=== PATIENT | female | born 1995 | race Caucasian/White ===

== ENCOUNTER → 2023-01-21 10:24 | Outpatient (CLI) | payer OTHER, SELFPAY ==
--- NOTE | 2023-01-21 | DI.MRI.S_ITS ---
PROCEDURE: MR ANKLE LT WO CON INDICATIONS: Pain in left ankle and joints of left foot TECHNIQUE: Noncontrast sagittal T1 spin echo and T2 fast spin echo with fat saturation, axial proton density fast spin echo and T2 fast spin echo with fat saturation, coronal T1 spin echo and T2 fast spin echo with fat saturation through the ankle/hindfoot. COMPARISON: None. FINDINGS: Image quality: Excellent. Bones and joints: No bone marrow contusions or fractures. No hindfoot coalitions. No osteochondral injuries of the talar dome. No pathologic joint effusions. Medial structures: The posterior tibialis, flexor digitorum longus, and flexor hallucis longus tendons are intact. Moderate fluid surrounds the flexor hallucis longus tendon. Small amounts of fluid surround the flexor digitorum longus and tibialis posterior tendons. The posterior tibial neurovascular bundle appears normal within the tarsal tunnel, without extrinsic mass effect. The deep layer (anterior and posterior tibiotalar ligaments) and superficial layer (tibionavicular, tibiospring, and tibiocalcaneal ligaments) of the deltoid ligament appear normal. The spring ligament components (superomedial calcaneonavicular, medioplantar oblique calcaneonavicular, and inferoplantar longitudinal ligaments) are intact. Lateral structures: The anterior talofibular, calcaneofibular, and posterior talofibular ligaments appear intact. More superiorly, the anterior and posterior tibiofibular ligaments appear intact, as is the intermalleolar ligament. The tibiofibular syndesmosis is normal in width at 2 mm or less. The peroneus longus and brevis tendons demonstrate normal location and small amounts of surrounding fluid Adjacent bony peroneal tubercle and retrotrochlear prominence are normal in size. The sinus tarsi demonstrates normal fatty signal, without edema, fibrosis, or cyst formation. Visualized sinus tarsi components (cervical ligament, interosseous talocalcaneal ligament, roots of the inferior extensor retinaculum) appear normal. The calcaneonavicular and calcaneocuboid components of the bifurcate ligament appear intact. The dorsal calcaneocuboid ligament appears intact. Anterior structures: The tibialis anterior, extensor hallucis longus, and extensor digitorum longus tendons appear intact. The dorsal talonavicular ligament appears intact. Posterior and plantar structures: There are a few small regions of fluid signal intensity within the distal Achilles tendon. Medial and lateral bands of the plantar fascia are of normal thickness. No abductor digiti quinti muscle atrophy to suggest Lindsay neuropathy. IMPRESSION: 1. Low-grade tears of the distal Achilles tendon. 2. Medial and lateral flexor tenosynovitis. Dictated by: Kathrin Richey M.D. on 01/21/2023 at 13:10 Approved by: Kathrin Richey M.D. on 01/21/2023 at 13:28
== END ==
DX: S86.012A Strain of left Achilles tendon, initial encounter (principal); M65.872 Other synovitis and tenosynovitis, left ankle and foot; M25.572 Pain in left ankle and joints of left foot
CPT/HCPCS: 73721

== ENCOUNTER 2023-08-05 11:39 | Emergency (ER) | payer OTHER, SELFPAY ==
[2023-08-05 12:09] VITALS: BP 176/84; PULSE 99; RESP 12; TEMP 36.3; O2SAT 99; BMI 40.1
--- NOTE | 2023-08-05 12:23 | ED.FEMALEGU ---
HPI - Female Genitourinary <Yany Simmons PA-C - Last Filed: 08/05/23 14:23> General Chief complaint: Urogenital-Female Stated complaint: abd pain, left lower quad Time Seen by Provider: 08/05/23 11:56 Source: patient Mode of arrival: Ambulatory History of Present Illness HPI Narrative: Patient is a 27-year-old female presenting for evaluation of left lower abdominal pain since July 31, x4 days. She reports the pain occurs about every 2 hours with a sharp jabbing burst. She reports previous history of ectopic in August of 2018. She reports her last menstrual period is July 11 and she denies taking control and reports unprotected sex. She denies any changes to urination. She reports that she is having regular bowel movements with a stool yesterday. She denies any vomiting. She does report nausea this morning which has resolved now. She reports feeling slight dizziness starting yesterday and continuing into today as well as some shaking felt in her whole-body yesterday continuing only in her hands today. She denies any fever body aches, nasal congestion, cough. She denies any pain in her back nor history of kidney stones. She denies any abnormal vaginal discharge. She denies any allergy to medications. Related Data Previous Rx's Medication Instructions Recorded sulfamethoxazole 800 1 tab PO Q12H 5 days #10 tabs 08/05/23 mg-trimethoprim 160 mg tablet (Bactrim DS) Allergies Allergy/AdvReac Type Severity Reaction Status Date / Time No Known Drug Allergies Allergy Verified 08/05/23 14:22 Review of Systems <Yany Simmons PA-C - Last Filed: 08/05/23 14:23> Review of Systems Narrative: See HPI Patient History <Yany Simmons PA-C - Last Filed: 08/05/23 14:23> Substance Use Type: does not use Exam <Yany Simmons PA-C - Last Filed: 08/05/23 14:23> Initial Vital Signs Initial Vital Signs: Vital Signs Temperature 97.3 F L 08/05/23 12:09 Pulse Rate 99 H 08/05/23 12:09 Respiratory Rate 12 08/05/23 12:09 Blood Pressure 176/84 H 08/05/23 12:09 Pulse Oximetry 99 08/05/23 12:09 Oxygen Delivery Method Room Air 08/05/23 12:09 GENERAL: 27 year old patient appears stated age. Well-developed patient, in no acute distress. HEAD: Atraumatic. Normocephalic. EYES: Pupils equal round and reactive. No scleral icterus. No injection or drainage. ENT: Nose without bleeding, purulent drainage. NECK: Trachea midline. CARDIOVASCULAR: Regular rate and rhythm without murmurs, gallops, or rubs. RESPIRATORY: Clear to auscultation. Breath sounds equal bilaterally. No wheezes, rales, or rhonchi. GASTROINTESTINAL: Bowel sounds present, abdomen soft, tender in left flank radiating into left lower quadrant, no tenderness appreciated in right upper or lower quadrant nor epigastric area BACK: Nontender without deformity or crepitance. No CVA tenderness noted bilaterally. NEURO: AOx3. SKIN: No rash or erythema of visible areas <Geuro Dietrich MD - Last Filed: 08/05/23 18:06> Initial Vital Signs Initial Vital Signs: Vital Signs Temperature 97.3 F L 08/05/23 12:09 Pulse Rate 99 H 08/05/23 12:09 Respiratory Rate 12 08/05/23 12:09 Blood Pressure 176/84 H 08/05/23 12:09 Pulse Oximetry 99 08/05/23 12:09 Oxygen Delivery Method Room Air 08/05/23 12:09 Course <Yany Simmons PA-C - Last Filed: 08/05/23 14:23> Orders Ordered: ED Orders 08/05/23 12:31 Urine Culture Stat Urine Microscopic Stat 08/05/23 13:06 Complete Blood Count AUTO DIFF Stat Comprehensive Metabolic Panel Stat HCG Quantitative /Beta subunit Stat Lipase Stat 08/05/23 13:11 US pelvic complete Stat Vital Signs Vital signs: Vital Signs - 8 hr 08/05/23 12:09 08/05/23 14:25 Temperature 97.3 F L Pulse Rate 99 H 74 Respiratory Rate 12 18 Blood Pressure 176/84 H 117/60 Pulse Oximetry 99 99 Oxygen Delivery Method Room Air Room Air <Guero Dietrich MD - Last Filed: 08/05/23 18:06> Orders Ordered: ED Orders 08/05/23 12:31 Urine Culture Stat Urine Microscopic Stat 08/05/23 13:06 Complete Blood Count AUTO DIFF Stat Comprehensive Metabolic Panel Stat HCG Quantitative /Beta subunit Stat Lipase Stat 08/05/23 13:11 US pelvic complete Stat Vital Signs Vital signs: Vital Signs - 8 hr 08/05/23 12:09 08/05/23 14:25 Temperature 97.3 F L Pulse Rate 99 H 74 Respiratory Rate 12 18 Blood Pressure 176/84 H 117/60 Pulse Oximetry 99 99 Oxygen Delivery Method Room Air Room Air MDM - Female Genitourinary <Yany Simmons PA-C - Last Filed: 08/05/23 14:23> Lab Data 08/05/23 13:06 08/05/23 13:06 Labs: Lab Results 08/05/23 08/05/23 Range/Units 12:31 13:06 WBC 11.0 (4.5-11.0) X10^3/uL RBC 4.37 (4.0-5.2) X10^6/uL Hgb 13.1 (12.0-16.0) g/dL Hct 38.2 (36-46) % MCV 87.3 (80-100) fL MCH 30.0 (26-34) PG MCHC 34.4 (30-36) % RDW 13.2 (11.6-14.8) % Plt Count 261 (150-400) X10^3/uL Neut % (Auto) 53.9 (50-75) % Lymph % (Auto) 26.8 (25-40) % Power % (Auto) 5.5 (3-14) % Eos % (Auto) 13.5 H (2-4) % Baso % (Auto) 0.3 (0-2) % Neut # (Auto) 5900 (8997-9560) /uL Lymph # (Auto) 3000 (0698-1620) /uL Power # (Auto) 600 (0-900) /uL Eos # (Auto) 1500 H (0-450) /uL Baso # (Auto) 0 (0-100) /uL Sodium 138 (137-145) mmol/L Potassium 4.2 (3.4-5.1) mmol/L Chloride 107 (98-107) mmol/L Carbon Dioxide 27 (22-32) mmol/L BUN 13 (7-17) mg/dL Creatinine 0.71 (0.52-1.04) mg/dL Estimated GFR > 60 (>60) mL/min BUN/Creatinine Ratio 18.3 (6-22) Glucose 89 (70-100) mg/dL Calcium 8.9 (8.4-10.2) mg/dL Total Bilirubin 0.7 (0.2-1.3) mg/dL AST 32 (14-36) IU/L ALT 19 (<35) IU/L Alkaline Phosphatase 34 L (38-126) U/L Total Protein 8.0 (6.3-8.2) g/dL Albumin 4.3 (3.5-5.0) g/dL Globulin 3.7 (1.7-4.1) g/dL Albumin/Globulin Ratio 1.2 (1.0-2.8) Lipase 99 (23-300) U/L HCG, Quant < 2.4 mIU/mL Urine RBC 1-5/hpf (0-5/HPF) Urine WBC 10-30/hpf H (0-5/HPF) Ur Squamous Epith Cells 10-30 /hpf H (0-5/HPF) Urine Bacteria Many (>30) H (None) Ur Culture Indicated? Specimen cultured Vol Urine Centrifuged Low vol <10ml (spun) A Urine Dip Bedside Urine Glucose Negative Bedside Urine Bilirubin - Negative Bedside Urine Ketone - Negative Urine Specific Brownell 6.0 Bedside Urine Occult Blood - Negative Bedside Urine pH 6.0 Bedside Urine Protein +/- 15 Bedside Urine Urobilinogen - Negative Bedside Urine Nitrite - Negative Bedside Urine Leukocytes + 70 Esterase Imaging Data Complete pelvic ultrasound: Radiologist's Impression: PROCEDURE: US PELVIC COMPLETE INDICATIONS: PAIN TECHNIQUE: Real-time scanning was performed of the pelvic organs, with image documentation. Additional endovaginal scanning was necessary due to incomplete visualization of the adnexal and endometrial structures by transabdominal scanning. COMPARISON: None. FINDINGS: Uterus: Uterus is anteverted and normal in size at 4.2 x 6.3 x 9.4 cm. The myometrium is homogeneous. The endometrium measures 12.3 mm combined thickness. Ovaries: The right ovary measures 1.8 x 2.7 x 2.3 cm, with a calculated ovarian volume of 5.9 cc. The left ovary measures 3.7 x 2.6 x 2.8 cm, with a calculated ovarian volume of 14.2 cc. The ovaries have a normal sonographic appearance. Less than 12 follicles can be seen in each ovary. No adnexal masses are seen. Other: No pathologic free abdominal or pelvic fluid. IMPRESSION: Normal pelvic ultrasound. No evidence of ovarian torsion. We strive to produce accurate, complete, and clear reports of imaging services. To assist us in improving patient care, this report was composed using standard report templates and voice recognition software. Therefore, it may contain abnormal punctuation, insertions and/or omissions. Occasional wrong-word or sound-alike substitutions may occur. Though we review the report and make efforts to correct it, we do recommend that the report be read carefully in proper context to recognize any text inaccuracies. Dictated by: Iftikhar Soriano M.D. on 08/05/2023 at 14:04 Approved by: Iftikhar Soriano M.D. on 08/05/2023 at 14:06 [facility] Narrative Medical decision making narrative: Patient is a 27-year-old female presenting for left lower quadrant pain for the last 4 days with history of ectopic in August 2018. UA today shows evidence of leukocyte esterase. Urine has been sent for micro. Patient reports 8/10 pain roughly every 2 hours when she experiences a sharp stabbing sensation in her left lower quadrant. Due to this high level of pain as well as her elevated blood pressure 176/84 today, I recommend further evaluation with CBC, CMP, hCG quant, lipase for further evaluation. If hCG quant is positive, we will proceed with ultrasound to rule out intrauterine . If negative, we will proceed with CT abdomen pelvis with and without contrast. -Called to discuss case with Dr. Dietrich. With evidence of bacteria as well as white blood cells in urine microscopic as well as left flank pain radiating into left lower quadrant, patient's symptoms are consistent with urinary tract infection. Recommend treatment with a antibiotics such as cefdinir or bactrim with good penetration to the kidneys. Discussed that since patient's respiratory rate and pulse are appropriate and vital signs otherwise appropriate with no appearance of sepsis on exam, no CBC or CMP or radiation likely needed. May proceed with hCG quant per discussion with patient. May proceed with pelvic ultrasound with Doppler to rule out ovarian torsion. Orders have been adjusted. -1355 CBC, CMP and Lipase were resulted despite stop requisition ordered after discussion. No elevated white count noted, no abnormality in electrolytes. normal lipase. awaiting hcg quant and final US imaging results. Patient reports that she is feeling ok and denies allergic reaction to bactrim. in past. -1415 hCG quantitative was negative, ultrasound results showed no abnormality or evidence of ovarian torsion. Discussed with patient, that her symptoms are most consistent with urinary tract infection with concern for possible kidney involvement. Recommend 5 day course of Bactrim for penetrance of treatment to the kidney. Recommend patient returned for further evaluation if she should develop shaking, worsening abdominal pain, continued nausea vomiting or overall worsening symptoms. Advised her to continue to stay well hydrated. She verbalized understanding in his in agreement with discharge home. Patient's symptoms improved over duration of stay with above-stated therapies. Findings and discharge diagnosis discussed with patient/family followed by verbalization of understanding Return precautions discussed with patient/family whom verbalize understanding of diagnosis and plan <Guero Dietrich MD - Last Filed: 08/05/23 18:06> Lab Data Labs: Lab Results 08/05/23 08/05/23 Range/Units 12:31 13:06 WBC 11.0 (4.5-11.0) X10^3/uL RBC 4.37 (4.0-5.2) X10^6/uL Hgb 13.1 (12.0-16.0) g/dL Hct 38.2 (36-46) % MCV 87.3 (80-100) fL MCH 30.0 (26-34) PG MCHC 34.4 (30-36) % RDW 13.2 (11.6-14.8) % Plt Count 261 (150-400) X10^3/uL Neut % (Auto) 53.9 (50-75) % Lymph % (Auto) 26.8 (25-40) % Power % (Auto) 5.5 (3-14) % Eos % (Auto) 13.5 H (2-4) % Baso % (Auto) 0.3 (0-2) % Neut # (Auto) 5900 (5093-7355) /uL Lymph # (Auto) 3000 (7756-7654) /uL Power # (Auto) 600 (0-900) /uL Eos # (Auto) 1500 H (0-450) /uL Baso # (Auto) 0 (0-100) /uL Sodium 138 (137-145) mmol/L Potassium 4.2 (3.4-5.1) mmol/L Chloride 107 (98-107) mmol/L Carbon Dioxide 27 (22-32) mmol/L BUN 13 (7-17) mg/dL Creatinine 0.71 (0.52-1.04) mg/dL Estimated GFR > 60 (>60) mL/min BUN/Creatinine Ratio 18.3 (6-22) Glucose 89 (70-100) mg/dL Calcium 8.9 (8.4-10.2) mg/dL Total Bilirubin 0.7 (0.2-1.3) mg/dL AST 32 (14-36) IU/L ALT 19 (<35) IU/L Alkaline Phosphatase 34 L (38-126) U/L Total Protein 8.0 (6.3-8.2) g/dL Albumin 4.3 (3.5-5.0) g/dL Globulin 3.7 (1.7-4.1) g/dL Albumin/Globulin Ratio 1.2 (1.0-2.8) Lipase 99 (23-300) U/L HCG, Quant < 2.4 mIU/mL Urine RBC 1-5/hpf (0-5/HPF) Urine WBC 10-30/hpf H (0-5/HPF) Ur Squamous Epith Cells 10-30 /hpf H (0-5/HPF) Urine Bacteria Many (>30) H (None) Ur Culture Indicated? Specimen cultured Vol Urine Centrifuged Low vol <10ml (spun) A Urine Dip Bedside Urine Glucose Negative Bedside Urine Bilirubin - Negative Bedside Urine Ketone - Negative Urine Specific Brownell 6.0 Bedside Urine Occult Blood - Negative Bedside Urine pH 6.0 Bedside Urine Protein +/- 15 Bedside Urine Urobilinogen - Negative Bedside Urine Nitrite - Negative Bedside Urine Leukocytes + 70 Esterase Discharge Plan Departure Patient Disposition: Home Clinical Impression: Urinary tract infection Qualifiers: Urinary tract infection type: acute cystitis Hematuria presence: without hematuria Qualified Code(s): N30.00 - Acute cystitis without hematuria Instructions: DI for Urinary Tract Infection (UTI) Activity Restrictions/Additional Instructions: Thank you for coming in today for your care. You have been diagnosed with a UTI. Testing for was negative, and pelvic ultrasound did not show any abnormal findings. We will send your urine for culture and adjust treatment if needed. I recommend increase fluids. *What to do: *Please continue to take your regular medications as directed. [x]New medication prescriptions sent to your pharmacy: [facility] [place] *Please follow up with your primary care provider in 2-3 days, call for an appointment. Let them know you were seen in the Emergency Department and that we ask that you be seen in follow up. We will electronically transmit a record of today's note if your PCP is in our system *If you do not have a primary care provider please contact the [facility] Resource line at [phone]. They will ask some questions about your medical history and help get you set up with a doctor in the community. *Return to Emergency Department if you should have any new, worsening or concerning symptoms, such as fever greater than 101 F, shaking chills, worsening pain, persistent vomiting or other bothersome symptoms. Prescriptions: New sulfamethoxazole-trimethoprim [Bactrim DS] 800-160 mg tablet 1 tab PO Q12H 5 Days Qty: 10 0RF Referrals: ProviderNick [Primary Care Provider] - Stand Alone Forms: Patient Portal/API ED Sign-out <Guero Dietrich MD - Last Filed: 08/05/23 18:06> Cosign ED Attending Juan M Attestation: Case was discussed with the IPC while the patient was here and I agree with the plan
[2023-08-05 12:54] LABS: Urine Volume Low Vol <10mL (spun)
[2023-08-05 12:59] LABS: Bacteria Urine Many (>30); Culture Indicated Urine Specimen Cultured; RBC Urine 1-5/HPF (0-5/HPF); Squamous Epithelial Cell Urine 10-30 /HPF (0-5/HPF); WBC Urine 10-30/HPF (0-5/HPF)
--- NOTE | 2023-08-05 13:11 | DI.US.S_ITS ---
PROCEDURE: US PELVIC COMPLETE INDICATIONS: PAIN TECHNIQUE: Real-time scanning was performed of the pelvic organs, with image documentation. Additional endovaginal scanning was necessary due to incomplete visualization of the adnexal and endometrial structures by transabdominal scanning. COMPARISON: None. FINDINGS: Uterus: Uterus is anteverted and normal in size at 4.2 x 6.3 x 9.4 cm. The myometrium is homogeneous. The endometrium measures 12.3 mm combined thickness. Ovaries: The right ovary measures 1.8 x 2.7 x 2.3 cm, with a calculated ovarian volume of 5.9 cc. The left ovary measures 3.7 x 2.6 x 2.8 cm, with a calculated ovarian volume of 14.2 cc. The ovaries have a normal sonographic appearance. Less than 12 follicles can be seen in each ovary. No adnexal masses are seen. Other: No pathologic free abdominal or pelvic fluid. IMPRESSION: Normal pelvic ultrasound. No evidence of ovarian torsion. We strive to produce accurate, complete, and clear reports of imaging services. To assist us in improving patient care, this report was composed using standard report templates and voice recognition software. Therefore, it may contain abnormal punctuation, insertions and/or omissions. Occasional wrong-word or sound-alike substitutions may occur. Though we review the report and make efforts to correct it, we do recommend that the report be read carefully in proper context to recognize any text inaccuracies. Dictated by: Iftikhar Soriano M.D. on 08/05/2023 at 14:04 Approved by: Iftikhar Soriano M.D. on 08/05/2023 at 14:06
[2023-08-05 13:19] LABS: Add Manual Diff / Slide Review NO; Basophils Absolute Auto 0 /uL (0-100); Basophils Percent Auto 0.3 % (0-2); Eosinophils Absolute Auto 1500 /uL (0-450); Eosinophils Percent Auto 13.5 % (2-4); Hematocrit 38.2 % (36-46); Hemoglobin 13.1 g/dL (12.0-16.0); Lymphocytes Absolute Auto 3000 /uL (1100-4500); Lymphocytes Percent Auto 26.8 % (25-40); Mean Corpuscular HGB Conc 34.4 % (30-36); Mean Corpuscular Volume 87.3 fL (80-100); Monocytes Absolute Auto 600 /uL (0-900); Monocytes Percent Auto 5.5 % (3-14); Neutrophils Absolute Auto 5900 /uL (1500-7000); Neutrophils Percent Auto 53.9 % (50-75); Platelet Count 261 X10^3/uL (150-400); Red Blood Cell Count 4.37 X10^6/uL (4.0-5.2); Red Cell Distribution Width 13.2 % (11.6-14.8)
[2023-08-05 13:34] LABS: Alanine Aminotransferase 19 IU/L (<35); Albumin 4.3 g/dL (3.5-5.0); Albumin Globulin Ratio 1.2 (1.0-2.8); Alkaline Phosphatase 34 U/L (38-126); Aspartate Aminotransferase 32 IU/L (14-36); BUN Creatinine Ratio 18.3 (6-22); Bilirubin Total 0.7 mg/dL (0.2-1.3); Blood Urea Nitrogen 13 mg/dL (7-17); Calcium 8.9 mg/dL (8.4-10.2); Carbon Dioxide 27 mmol/L (22-32); Chloride 107 mmol/L (98-107); Estimated Glomerular Filt Rate > 60 mL/min (>60); Globulin 3.7 g/dL (1.7-4.1); Glucose 89 mg/dL (70-100); HEMOLYSIS 102 (0-50); Lipase 99 U/L (23-300); Sodium 138 mmol/L (137-145)
[2023-08-05 13:35] LABS: Potassium 4.2 mmol/L (3.4-5.1)
[2023-08-05 13:49] LABS: HCG Quantitative /Beta subunit < 2.4 mIU/mL
[2023-08-05 14:25] VITALS: BP 117/60; PULSE 74; RESP 18; O2SAT 99
== END 2023-08-05 14:27 | disposition home or self-care (01) ==
PROVIDERS: Emergency Provider Physician Assistant
DX: N30.00 Acute cystitis without hematuria (principal); R42 Dizziness and giddiness; R11.0 Nausea
CPT/HCPCS: 36415; 76830; 76856; 80053; 81003; 81015; 83690; 84702; 85025; 87086; 93975; 99283; 99284

== ENCOUNTER → 2024-07-17 13:53 | Outpatient (CLI) | payer OTHER, SELFPAY ==
[2024-07-17 14:46] LABS: Add Manual Diff / Slide Review NO; Basophils Absolute Auto 0 /uL (0-100); Basophils Percent Auto 0.5 % (0-2); Eosinophils Absolute Auto 200 /uL (0-450); Hematocrit 39.2 % (36-46); Hemoglobin 13.4 g/dL (12.0-16.0); Lymphocytes Absolute Auto 2400 /uL (1100-4500); Lymphocytes Percent Auto 32.9 % (25-40); Mean Corpuscular HGB Conc 34.2 % (30-36); Mean Corpuscular Hemoglobin 29.5 PG (26-34); Mean Corpuscular Volume 86.4 fL (80-100); Monocytes Absolute Auto 400 /uL (0-900); Neutrophils Absolute Auto 4300 /uL (1500-7000); Neutrophils Percent Auto 57.6 % (50-75); Platelet Count 310 X10^3/uL (150-400); Red Blood Cell Count 4.53 X10^6/uL (4.0-5.2); Red Cell Distribution Width 13.7 % (11.6-14.8); White Blood Cell Count 7.4 X10^3/uL (4.5-11.0)
[2024-07-17 15:03] LABS: Alanine Aminotransferase 24 IU/L (<35); Aspartate Aminotransferase 23 IU/L (14-36); BUN Creatinine Ratio 12.7 (6-22); Blood Urea Nitrogen 7 mg/dL (7-17); Estimated Glomerular Filt Rate > 60 mL/min (>60); Natera Collection Specimen Collected; Uric Acid 3.6 mg/dL (2.5-6.2)
[2024-07-17 15:05] LABS: Natera Collection Specimen Collected
[2024-07-19 05:10] LABS: RPR Screen Non Reactive (Non Reactive); Varicella IgG Antibody Reactive (Non Reactive)
[2024-07-19 17:22] LABS: Hepatitis B Surface Antigen NEGATIVE s/c (NEGATIVE); Rubella Antibody IgG 12.9 IU/mL (>15)
[2024-07-19 17:40] LABS: HIV 1 & 2 Ab/Ag 4th Gen Combo NEGATIVE (NEGATIVE); Hep C Virus Ab w/Reflex Quant NEGATIVE s/c (NEGATIVE)
== END ==
LOC: LAB 13:54
PROVIDERS: Referring Provider Student in an Organized Health Care Education/Training Program; Visit Provider Student in an Organized Health Care Education/Training Program
DX: O09.899 Supervision of other high risk pregnancies, unspecified trimester (principal); O09.299 Supervision of pregnancy with other poor reproductive or obstetric history, unspecified trimester; O14.90 Unspecified pre-eclampsia, unspecified trimester; Z36.0 Encounter for antenatal screening for chromosomal anomalies
CPT/HCPCS: 36415; 80055; 82565; 84450; 84460; 84520; 84550; 86787; 86803; 86850; 86900; 86901; 87086; 87389

== ENCOUNTER → 2024-08-14 14:02 | Outpatient (CLI) | payer OTHER, SELFPAY ==
[2024-08-14 15:35] LABS: Urine N gonorrhoeae NOT DETECTED
[2024-08-14 15:37] LABS: Urine Chlamydia NOT DETECTED
== END ==
PROVIDERS: Visit Provider Student in an Organized Health Care Education/Training Program
DX: O98.819 Other maternal infectious and parasitic diseases complicating pregnancy, unspecified trimester (principal); A74.9 Chlamydial infection, unspecified
CPT/HCPCS: 87491; 87591

== ENCOUNTER → 2024-09-19 13:49 | Outpatient (CLI) | payer OTHER, SELFPAY ==
--- NOTE | 2024-09-19 13:50 | DI.US.S_ITS ---
PROCEDURE: US OB >= 14 WEEKS FETUS INDICATIONS: ANATOMY OUTSIDE/PRIOR DATING DATA: The calculations are made using the [place] of 02/04/2025. TECHNIQUE: Real-time scanning was performed of the fetus, with image documentation and biometric measurements. Endovaginal scanning: Not performed COMPARISON: [facility], , OB <= 14 WEEKS FETUS, 07/17/2024, 13:52. FINDINGS: General: A single living intrauterine gestation is present. Presentation: Vertex. Placenta: Placental position is posterior , without previa. Amniotic fluid index: 14.3 cm, normal range is 5-24 cm. Single deepest vertical pocket is 3.8 cm. heart rate: 150 beats per minute. Maternal cervical canal: 6.1 cm long. Normal lower limit is 2.5 cm. biometrics: Biparietal diameter: 4.6 cm, 20 weeks 0 days Head circumference: 17.0 cm, 19 weeks 4 days Abdominal circumference: 14.1 cm, 19 weeks 3 days Femur length: 3.6 cm, 21 weeks 2 days Clinically estimated gestational age: 20 weeks 2 days Composite gestational age from present scan: 20 weeks 1 day Estimated weight and percentile: 43rd percentile Anatomic survey: Neuro: Ventricles are non-dilated at less than 10 mm. Cisterna magna is normal at 3-11 mm. Cerebellum is normal in size and morphology. Nuchal skin fold: Normal at less than 6 mm between 14-21 weeks gestational age. Face: Nose and lips, facial profile are normal. Spine: No evidence for spina bifida. Heart: 4-chambered heart is present, with normal ventricular outflow tracts. Diaphragm: Diaphragm is intact. Stomach: Left-sided stomach is present. Kidneys: No hydronephrosis. Normal is less than 5 mm in 2nd trimester, less than 7 mm in 3rd trimester. Cord: 3-vessel cord has orthotopic insertion. Bladder: Normal in size. Extremities: All 4 extremities identified. IMPRESSION: 1. Single live intrauterine consistent with 20 weeks and 1 day. 2. There is a possible single nuchal cord. Otherwise, anatomic survey is within normal limits. We strive to produce accurate, complete, and clear reports of imaging services. To assist us in improving patient care, this report was composed using standard report templates and voice recognition software. Therefore, it may contain abnormal punctuation, insertions and/or omissions. Occasional wrong-word or sound-alike substitutions may occur. Though we review the report and make efforts to correct it, we do recommend that the report be read carefully in proper context to recognize any text inaccuracies. Dictated by: Heraclio Quezada M.D. on 09/20/2024 at 10:53 Approved by: Heraclio Quezada M.D. on 09/20/2024 at 10:59
== END ==
PROVIDERS: Referring Provider Student in an Organized Health Care Education/Training Program; Visit Provider Student in an Organized Health Care Education/Training Program
DX: Z34.82 Encounter for supervision of other normal pregnancy, second trimester (principal); Z3A.20 20 weeks gestation of pregnancy
CPT/HCPCS: 76811

== ENCOUNTER → 2024-10-16 10:36 | Outpatient (CLI) | payer OTHER, SELFPAY ==
[2024-10-16 14:42] LABS: Urine N gonorrhoeae NOT DETECTED
[2024-10-16 14:43] LABS: Urine Chlamydia NOT DETECTED
== END ==
LOC: LAB 10:38
PROVIDERS: Visit Provider Student in an Organized Health Care Education/Training Program
DX: Z11.3 Encounter for screening for infections with a predominantly sexual mode of transmission (principal); Z3A.24 24 weeks gestation of pregnancy
CPT/HCPCS: 87491; 87591

== ENCOUNTER → 2024-10-16 10:44 | Outpatient (CLI) | payer OTHER, SELFPAY ==
[2024-10-16 12:23] LABS: Hematocrit 35.2 % (36-46)
[2024-10-16 13:09] LABS: GTT (PREG) 1 Hour PP 50gm Dose 98 mg/dL (76-139)
== END ==
PROVIDERS: Referring Provider Student in an Organized Health Care Education/Training Program; Visit Provider Student in an Organized Health Care Education/Training Program
DX: Z11.3 Encounter for screening for infections with a predominantly sexual mode of transmission (principal); Z67.91 Unspecified blood type, Rh negative; Z13.1 Encounter for screening for diabetes mellitus; Z13.0 Encounter for screening for diseases of the blood and blood-forming organs and certain disorders involving the immune mechanism; Z3A.24 24 weeks gestation of pregnancy
CPT/HCPCS: 36415; 82950; 85014; 85018; 86850; 87491; 87591

== ENCOUNTER → 2024-11-13 10:27 | Outpatient (CLI) | payer OTHER, SELFPAY ==
[2024-11-13 14:43] LABS: Urine N gonorrhoeae NOT DETECTED
[2024-11-13 14:52] LABS: Urine Chlamydia NOT DETECTED
== END ==
LOC: LAB 10:28
PROVIDERS: Visit Provider Student in an Organized Health Care Education/Training Program
DX: O98.812 Other maternal infectious and parasitic diseases complicating pregnancy, second trimester (principal); A74.9 Chlamydial infection, unspecified
CPT/HCPCS: 87491; 87591

== ENCOUNTER 2024-11-30 20:31 | Observation (INO) | payer OTHER, SELFPAY ==
[2024-11-30] MEDS: ACETAMINOPHEN 325 MG TABLET 975 MG PO (21:10)
[2024-11-30 21:37] LABS: Add Manual Diff / Slide Review NO; Hematocrit 34.5 % (36-46); Hemoglobin 11.7 g/dL (12.0-16.0); Lymphocytes Absolute Auto 2800 /uL (1100-4500); Mean Corpuscular HGB Conc 34.0 % (30-36); Mean Corpuscular Hemoglobin 30.3 PG (26-34); Mean Corpuscular Volume 89.1 fL (80-100); Platelet Count 251 X10^3/uL (150-400)
[2024-11-30 21:59] LABS: Alanine Aminotransferase 19 IU/L (<35); Albumin 3.6 g/dL (3.5-5.0); Albumin Globulin Ratio 1.1 (1.0-2.8); Alkaline Phosphatase 84 U/L (38-126); Blood Urea Nitrogen 9 mg/dL (7-17); Calcium 9.0 mg/dL (8.4-10.2); Carbon Dioxide 19 mmol/L (22-32); Chloride 107 mmol/L (98-107); Estimated Glomerular Filt Rate > 60 mL/min (>60); Globulin 3.3 g/dL (1.7-4.1); Glucose 129 mg/dL (70-99); HEMOLYSIS < 15 (0-50); Potassium 3.3 mmol/L (3.4-5.1); Sodium 135 mmol/L (137-145); Total Protein 6.9 g/dL (6.3-8.2)
[2024-11-30 22:13] LABS: Appearance Urine UA CLEAR; Bilirubin Urine UA NEGATIVE (NEGATIVE); Color Urine UA YELLOW; Glucose Urine UA TRACE g/dL (Negative); Ketones Urine UA TRACE (NEGATIVE); Leukocyte Esterase Urine UA NEGATIVE (NEGATIVE); Nitrite Urine UA NEGATIVE (Negative); Occult Blood Urine UA NEGATIVE (Negative); Protein Urine UA NEGATIVE (Negative); Specific Gravity Urine UA >=1.030 (1.000-1.035); Urobilinogen Urine UA 1.0 E.U./dL (0.2); pH Urine UA 5.5 (4.5-8.0)
[2024-11-30 22:16] LABS: Culture Indicated Urine Cult Not Indicated
[2024-11-30 22:25] LABS: Protein (Total) Urine Random 8 mg/dL (0-12); Protein Creatinine Ratio Urine 0.04 GRAM/24H
[2024-11-30 22:40] VITALS: BP 118/58; PULSE 83; RESP 17; TEMP 36.4
--- NOTE | 2024-11-30 23:40 | P.TNLD_ITS ---
Visit Information Visit Information Date of evaluation: 11/30/24 Primary OB Provider: Jazmine Dunn On-call OB Provider: Rohith Orona Reason for Evaluation: Yes pre-term labor Comments/Additional reasons for admission: 29-year-old at [place] 30+4 weeks. Reports pelvic pain and back pain since last night. Discomfort recurring about every 10-15 minutes. Initially called after hours line, was advised to orally hydrate and rest. Presenting due to persistent discomfort. Endorses movement. Denies vaginal bleeding or leakage of fluid. course notable for history of preeclampsia in prior , obesity, Rh negative status. [facility] Medical History (Updated 12/01/24 @ 10:48 by Rohith Orona MD) Superficial venous thrombosis of left arm (~03/2024) BRCA2 gene mutation positive in female Preeclampsia MRSA cellulitis (~03/2024) Ectopic Surgical History (Updated 06/19/24 @ 16:57 by Jazmine Dunn DO) History of breast implant removal (04/12/24) History of salpingectomy (~2018) History of tonsillectomy and adenoidectomy [place] teeth extracted H/O breast reconstruction (~02/2024) S/P mastectomy, bilateral (~02/2024) Family History (Updated 06/13/24 @ 15:19 by Annamarie Gibbs RN) Mother BRCA gene mutation positive Benign tumor Hypertension Father Hypertension Stroke Syncope Abdominal hernia Grandmother Breast cancer Ovarian cancer Grandfather Alcohol abuse Grandmother Breast cancer Aunt Breast cancer Social History marital status: unmarried,single number of children: 1 household members: family (father and stepmother) and children lives independently: Yes caregiver/support person: Yes housing: apartment pets and animals: Yes (cats) education level: high school occupational status: employed (active duty, cook) current occupational exposures/hazards: Yes (degreasing chemicals) special silver needs: No travel history: recent seatbelt use: always water heater temp set < 120 deg: Yes working smoke detector in home: Yes fire extinguisher in home: No carbon monox detector in home: Yes firearms in home: No do you feel safe at home: Yes second hand exposure: Yes (stepmother smokes outdoors) alcohol intake: former (~3/week when not ) substance use type: does not use during the past year weight has: decreased > 10 lbs (intentional) well-balanced diet: daily or most days daily servings fruits/ve-4 caffeine: Yes Type(s) of exercise: none Review of Systems Review of Systems ROS: Yes All systems reviewed with the patient and are negative except as otherwise documented Objective Labs 11/30/24 21:20 11/30/24 21:20 Labs: Laboratory Results - last 24 hr 11/30/24 11/30/24 21:20 21:25 WBC 11.0 RBC 3.87 L Hgb 11.7 L Hct 34.5 L MCV 89.1 MCH 30.3 MCHC 34.0 RDW 13.3 Plt Count 251 Neut % (Auto) 64.8 Lymph % (Auto) 25.6 [place] % (Auto) 6.4 Eos % (Auto) 2.9 Baso % (Auto) 0.3 Neut # (Auto) 7200 H Lymph # (Auto) 2800 [place] # (Auto) 700 Eos # (Auto) 300 Baso # (Auto) 0 Sodium 135 L Potassium 3.3 L Chloride 107 Carbon Dioxide 19 L BUN 9 Creatinine 0.43 L Estimated GFR > 60 BUN/Creatinine Ratio 20.9 Glucose 129 H Calcium 9.0 Total Bilirubin 0.3 AST 25 ALT 19 Alkaline Phosphatase 84 Total Protein 6.9 Albumin 3.6 Globulin 3.3 Albumin/Globulin Ratio 1.1 Urine Color Yellow Urine Appearance Clear Urine pH 5.5 Ur Specific [place] >=1.030 H Urine Protein Negative Urine Glucose (UA) Trace H Urine Ketones Trace H Urine Occult Blood Negative Urine Nitrate Negative Urine Bilirubin Negative Urine Urobilinogen 1.0 Ur Leukocyte Esterase Negative Urine RBC 0-1/hpf Urine WBC 0-1/hpf Ur Squamous Epith Cells 5-10 /hpf H Calcium Oxalate Crystal Moderate H Urine Bacteria Few (2-10) H Urine Mucus 1+ H Ur Culture Indicated? Cult not indicated Vol Urine Centrifuged 10ml (spun) U Random Total Protein 8 Urine Creatinine 187.62 Protein/Creatinin Ratio 0.04 Evaluation Evaluation Baseline heart rate: 140 Variability: Moderate (6-25) monitor accelerations: Present Monitor Decelerations: Absent Category of Tracing: Reactive Status: Category l Diagnosis, Plan/Disposition Final Diagnosis (1) Pelvic pain affecting : Status: Acute (2) 30 weeks gestation of : Status: Acute Plan/Disposition Plan: NST reactive with category 1 FHT. No contractions noted on toco. Noted to have mildly elevated BP 130s systolic on arrival, PIH labs wnl. UA notable for glucose, ketones calcium oxalate crystals indicating mild degree of dehydration. Discharge home with instructions to hydrate adequately in continue monitoring BP, follow-up with primary OB as scheduled. OB Disposition: home
== END 2024-11-30 22:43 | disposition home or self-care (01) ==
PROVIDERS: Admitting Provider Family Medicine; Referring Provider Family Medicine; Visit Provider Family Medicine
DX: O26.893 Other specified pregnancy related conditions, third trimester (principal); R10.2 Pelvic and perineal pain; Z3A.30 30 weeks gestation of pregnancy
CPT/HCPCS: 59025; 80053; 81001; 82570; 84156; 85025; G0378; G0379

== ENCOUNTER 2024-12-11 11:20 | Outpatient (CLI) | payer OTHER, SELFPAY ==
[2024-12-11 12:18] LABS: Add Manual Diff / Slide Review NO; Alanine Aminotransferase 16 IU/L (<35); Albumin 3.8 g/dL (3.5-5.0); Albumin Globulin Ratio 1.1 (1.0-2.8); Alkaline Phosphatase 98 U/L (38-126); Blood Urea Nitrogen 5 mg/dL (7-17); Calcium 9.3 mg/dL (8.4-10.2); Carbon Dioxide 18 mmol/L (22-32); Chloride 107 mmol/L (98-107); Estimated Glomerular Filt Rate > 60 mL/min (>60); Globulin 3.4 g/dL (1.7-4.1); Glucose 126 mg/dL (70-99); HEMOLYSIS < 15 (0-50); Hematocrit 36.4 % (36-46); Hemoglobin 12.5 g/dL (12.0-16.0); Lymphocytes Absolute Auto 1900 /uL (1100-4500); Mean Corpuscular HGB Conc 34.2 % (30-36); Mean Corpuscular Hemoglobin 30.6 PG (26-34); Mean Corpuscular Volume 89.5 fL (80-100); Platelet Count 229 X10^3/uL (150-400); Potassium 4.0 mmol/L (3.4-5.1); Sodium 135 mmol/L (137-145); Total Protein 7.2 g/dL (6.3-8.2)
[2024-12-11 12:39] LABS: Protein (Total) Urine Random 7 mg/dL (0-12); Protein Creatinine Ratio Urine 0.05 GRAM/24H
--- NOTE | 2024-12-11 12:43 | PM.OBTRLD ---
Visit Information Visit Information Date of evaluation: 12/11/24 Primary OB Provider: Jazmine Dunn Reason for Evaluation: Yes non-stress test Comments/Additional reasons for admission: rule-out pre-e Vital Signs Vital Signs: Blood pressure is within normal limits in [facility] Medical History (Updated 12/11/24 @ 13:22 by Jazmine Dunn DO) Superficial venous thrombosis of left arm (~03/2024) BRCA2 gene mutation positive in female Preeclampsia MRSA cellulitis (~03/2024) Ectopic Surgical History (Updated 06/19/24 @ 16:57 by Jazmine Dunn DO) History of breast implant removal (04/12/24) History of salpingectomy (~2018) History of tonsillectomy and adenoidectomy [place] teeth extracted H/O breast reconstruction (~02/2024) S/P mastectomy, bilateral (~02/2024) Family History (Updated 06/13/24 @ 15:19 by Annamarie Gibbs RN) Mother BRCA gene mutation positive Benign tumor Hypertension Father Hypertension Stroke Syncope Abdominal hernia Grandmother Breast cancer Ovarian cancer Grandfather Alcohol abuse Grandmother Breast cancer Aunt Breast cancer Social History marital status: unmarried,single number of children: 1 household members: family (father and stepmother) and children lives independently: Yes caregiver/support person: Yes housing: apartment pets and animals: Yes (cats) education level: high school occupational status: employed (active duty, cook) current occupational exposures/hazards: Yes (degreasing chemicals) special silver needs: No travel history: recent seatbelt use: always water heater temp set < 120 deg: Yes working smoke detector in home: Yes fire extinguisher in home: No carbon monox detector in home: Yes firearms in home: No do you feel safe at home: Yes second hand exposure: Yes (stepmother smokes outdoors) alcohol intake: former (~3/week when not ) substance use type: does not use during the past year weight has: decreased > 10 lbs (intentional) well-balanced diet: daily or most days daily servings fruits/ve-4 caffeine: Yes Type(s) of exercise: none Objective Labs 12/11/24 11:35 12/11/24 11:35 Labs: Laboratory Results - last 24 hr 12/11/24 11:35 WBC 10.5 RBC 4.07 Hgb 12.5 Hct 36.4 MCV 89.5 MCH 30.6 MCHC 34.2 RDW 13.2 Plt Count 229 Neut % (Auto) 75.5 H Lymph % (Auto) 18.2 L [place] % (Auto) 4.5 Eos % (Auto) 1.4 L Baso % (Auto) 0.4 Neut # (Auto) 8000 H Lymph # (Auto) 1900 [place] # (Auto) 500 Eos # (Auto) 200 Baso # (Auto) 0 Sodium 135 L Potassium 4.0 Chloride 107 Carbon Dioxide 18 L BUN 5 L Creatinine 0.51 L Estimated GFR > 60 BUN/Creatinine Ratio 9.8 Glucose 126 H Calcium 9.3 Total Bilirubin 0.4 AST 27 ALT 16 Alkaline Phosphatase 98 Total Protein 7.2 Albumin 3.8 Globulin 3.4 Albumin/Globulin Ratio 1.1 Evaluation Evaluation Baseline heart rate: 120 Variability: Moderate (6-25) monitor accelerations: Present Monitor Decelerations: Absent Category of Tracing: Reactive Diagnosis, Plan/Disposition Final Diagnosis (1) Gestational hypertension: Status: Acute Plan/Disposition Plan: Patient with new diagnosis of gestational hypertension. Reactive NST, with normal lab work today, including urine protein:creatinine 0.05. -follow up for weekly NST with labs -plan for induction at 37 weeks OB Disposition: home
== END 2024-12-11 12:52 | disposition home or self-care (01) ==
LOC: LABOR 12:07 → OB 12:58
PROVIDERS: Referring Provider Student in an Organized Health Care Education/Training Program; Visit Provider Student in an Organized Health Care Education/Training Program
DX: O13.3 Gestational [pregnancy-induced] hypertension without significant proteinuria, third trimester (principal); Z3A.32 32 weeks gestation of pregnancy
CPT/HCPCS: 36415; 59025; 80053; 82570; 84156; 85025; G0378; G0379

== ENCOUNTER 2024-12-19 10:09 | Outpatient (CLI) | payer OTHER, SELFPAY ==
[2024-12-19 10:35] LABS: Add Manual Diff / Slide Review NO; Hematocrit 34.1 % (36-46); Hemoglobin 11.8 g/dL (12.0-16.0); Lymphocytes Absolute Auto 2000 /uL (1100-4500); Mean Corpuscular HGB Conc 34.7 % (30-36); Mean Corpuscular Hemoglobin 30.5 PG (26-34); Mean Corpuscular Volume 88.0 fL (80-100); Platelet Count 249 X10^3/uL (150-400)
[2024-12-19 10:50] LABS: Alanine Aminotransferase 18 IU/L (<35); Albumin 3.6 g/dL (3.5-5.0); Albumin Globulin Ratio 1.1 (1.0-2.8); Alkaline Phosphatase 100 U/L (38-126); Blood Urea Nitrogen 5 mg/dL (7-17); Calcium 8.7 mg/dL (8.4-10.2); Carbon Dioxide 19 mmol/L (22-32); Chloride 110 mmol/L (98-107); Estimated Glomerular Filt Rate > 60 mL/min (>60); Globulin 3.3 g/dL (1.7-4.1); Glucose 134 mg/dL (70-99); HEMOLYSIS < 15 (0-50); Potassium 3.8 mmol/L (3.4-5.1); Sodium 136 mmol/L (137-145); Total Protein 6.9 g/dL (6.3-8.2); Uric Acid 3.7 mg/dL (2.5-6.2)
[2024-12-19 11:18] LABS: Protein (Total) Urine Random 9 mg/dL (0-12); Protein Creatinine Ratio Urine 0.07 GRAM/24H
== END 2024-12-19 11:23 | disposition home or self-care (01) ==
LOC: LABOR 10:44 → OB 13:13
PROVIDERS: Referring Provider Student in an Organized Health Care Education/Training Program; Visit Provider Student in an Organized Health Care Education/Training Program
DX: O99.213 Obesity complicating pregnancy, third trimester (principal); Z3A.33 33 weeks gestation of pregnancy
CPT/HCPCS: 36415; 59025; 80053; 84550; 85025; G0378; G0379

== ENCOUNTER 2024-12-25 10:55 | Outpatient (CLI) | payer OTHER, SELFPAY ==
[2024-12-25 11:33] LABS: Add Manual Diff / Slide Review NO; Hematocrit 34.8 % (36-46); Hemoglobin 12.4 g/dL (12.0-16.0); Lymphocytes Absolute Auto 1800 /uL (1100-4500); Mean Corpuscular HGB Conc 35.7 % (30-36); Mean Corpuscular Hemoglobin 31.3 PG (26-34); Mean Corpuscular Volume 87.8 fL (80-100); Platelet Count 238 X10^3/uL (150-400)
[2024-12-25 11:44] LABS: Protein (Total) Urine Random 8 mg/dL (0-12); Protein Creatinine Ratio Urine 0.04 GRAM/24H
[2024-12-25 11:51] LABS: Alanine Aminotransferase 16 IU/L (<35); Albumin 3.7 g/dL (3.5-5.0); Albumin Globulin Ratio 1.1 (1.0-2.8); Alkaline Phosphatase 112 U/L (38-126); Blood Urea Nitrogen 7 mg/dL (7-17); Calcium 9.0 mg/dL (8.4-10.2); Carbon Dioxide 17 mmol/L (22-32); Chloride 110 mmol/L (98-107); Estimated Glomerular Filt Rate > 60 mL/min (>60); Globulin 3.3 g/dL (1.7-4.1); Glucose 146 mg/dL (70-99); HEMOLYSIS < 15 (0-50); Potassium 3.7 mmol/L (3.4-5.1); Sodium 137 mmol/L (137-145); Total Protein 7.0 g/dL (6.3-8.2)
== END 2024-12-25 12:10 | disposition home or self-care (01) ==
LOC: LABOR 11:53 → OB 13:11
PROVIDERS: Referring Provider Student in an Organized Health Care Education/Training Program; Visit Provider Student in an Organized Health Care Education/Training Program
DX: O13.3 Gestational [pregnancy-induced] hypertension without significant proteinuria, third trimester (principal); O99.213 Obesity complicating pregnancy, third trimester; E66.9 Obesity, unspecified; Z3A.34 34 weeks gestation of pregnancy; Z87.59 Personal history of other complications of pregnancy, childbirth and the puerperium
CPT/HCPCS: 59025; 80053; 82570; 84156; 85025; G0378; G0379

== ENCOUNTER 2025-01-02 12:19 | Observation (INO) | payer OTHER, SELFPAY ==
[2025-01-02 13:13] LABS: Add Manual Diff / Slide Review NO; Hematocrit 35.0 % (36-46); Hemoglobin 12.2 g/dL (12.0-16.0); Lymphocytes Absolute Auto 2200 /uL (1100-4500); Mean Corpuscular HGB Conc 34.9 % (30-36); Mean Corpuscular Hemoglobin 30.8 PG (26-34); Mean Corpuscular Volume 88.3 fL (80-100); Platelet Count 223 X10^3/uL (150-400)
[2025-01-02 13:21] LABS: Alanine Aminotransferase 18 IU/L (<35); Albumin 3.6 g/dL (3.5-5.0); Albumin Globulin Ratio 1.1 (1.0-2.8); Alkaline Phosphatase 129 U/L (38-126); Blood Urea Nitrogen 5 mg/dL (7-17); Calcium 9.2 mg/dL (8.4-10.2); Carbon Dioxide 18 mmol/L (22-32); Chloride 108 mmol/L (98-107); Estimated Glomerular Filt Rate > 60 mL/min (>60); Globulin 3.4 g/dL (1.7-4.1); Glucose 104 mg/dL (70-99); HEMOLYSIS < 15 (0-50); Potassium 3.8 mmol/L (3.4-5.1); Sodium 135 mmol/L (137-145); Total Protein 7.0 g/dL (6.3-8.2); Uric Acid 3.6 mg/dL (2.5-6.2)
--- NOTE | 2025-01-02 13:38 | P.TNLD_ITS ---
Visit Information Visit Information Date of evaluation: 01/02/25 Primary OB Provider: Jazmine Dunn On-call OB Provider: Yany Tolentino Reason for Evaluation: Yes non-stress test Comments/Additional reasons for admission: preE without severe features Vital Signs Vital Signs: no mild range or severe range BP per review in [facility] Medical History (Updated 12/11/24 @ 13:22 by Jazmine Dunn DO) Superficial venous thrombosis of left arm (~03/2024) BRCA2 gene mutation positive in female Preeclampsia MRSA cellulitis (~03/2024) Ectopic Surgical History (Updated 06/19/24 @ 16:57 by Jazmine Dunn DO) History of breast implant removal (04/12/24) History of salpingectomy (~2018) History of tonsillectomy and adenoidectomy [place] teeth extracted H/O breast reconstruction (~02/2024) S/P mastectomy, bilateral (~02/2024) Family History (Updated 06/13/24 @ 15:19 by Annamarie Gibbs RN) Mother BRCA gene mutation positive Benign tumor Hypertension Father Hypertension Stroke Syncope Abdominal hernia Grandmother Breast cancer Ovarian cancer Grandfather Alcohol abuse Grandmother Breast cancer Aunt Breast cancer Social History marital status: unmarried,single number of children: 1 household members: family (father and stepmother) and children lives independently: Yes caregiver/support person: Yes housing: apartment pets and animals: Yes (cats) education level: high school occupational status: employed (active duty, cook) current occupational exposures/hazards: Yes (degreasing chemicals) special silver needs: No travel history: recent seatbelt use: always water heater temp set < 120 deg: Yes working smoke detector in home: Yes fire extinguisher in home: No carbon monox detector in home: Yes firearms in home: No do you feel safe at home: Yes second hand exposure: Yes (stepmother smokes outdoors) alcohol intake: former (~3/week when not ) substance use type: does not use during the past year weight has: decreased > 10 lbs (intentional) well-balanced diet: daily or most days daily servings fruits/ve-4 caffeine: Yes Type(s) of exercise: none Objective Labs 01/02/25 12:40 01/02/25 12:40 Labs: Laboratory Results - last 24 hr 01/02/25 12:40 Sodium 135 L Potassium 3.8 Chloride 108 H Carbon Dioxide 18 L BUN 5 L Creatinine 0.45 L Estimated GFR > 60 BUN/Creatinine Ratio 11.1 Glucose 104 H Uric Acid 3.6 Calcium 9.2 Total Bilirubin 0.4 AST 23 ALT 18 Alkaline Phosphatase 129 H Total Protein 7.0 Albumin 3.6 Globulin 3.4 Albumin/Globulin Ratio 1.1 Evaluation Evaluation Baseline heart rate: 130 Variability: Moderate (6-25) monitor accelerations: Present Monitor Decelerations: Absent Status: Category l Diagnosis, Plan/Disposition Plan/Disposition Plan: continue weekly schedule of NST/PIH labs strict interval precautions OB Disposition: home
[2025-01-02 15:13] LABS: Protein (Total) Urine Random 11 mg/dL (0-12); Protein Creatinine Ratio Urine 0.06 GRAM/24H
== END 2025-01-02 15:51 | disposition home or self-care (01) ==
PROVIDERS: Admitting Provider Student in an Organized Health Care Education/Training Program; Referring Provider Student in an Organized Health Care Education/Training Program; Visit Provider Student in an Organized Health Care Education/Training Program
DX: O14.03 Mild to moderate pre-eclampsia, third trimester (principal); Z3A.35 35 weeks gestation of pregnancy
CPT/HCPCS: 59025; 59050; 80053; 84550; 85025; G0378; G0379

== ENCOUNTER → 2025-01-08 11:16 | Outpatient (CLI) | payer OTHER, SELFPAY ==
[2025-01-09 11:35] LABS: Strep Grp B PCR NEG for Grp B Strep
== END ==
PROVIDERS: Visit Provider Student in an Organized Health Care Education/Training Program
DX: Z36.85 Encounter for antenatal screening for Streptococcus B (principal)
CPT/HCPCS: 87653

== ENCOUNTER 2025-01-08 11:48 | Outpatient (CLI) | payer OTHER, SELFPAY ==
[2025-01-08 12:28] LABS: Add Manual Diff / Slide Review NO; Hematocrit 36.1 % (36-46); Hemoglobin 12.5 g/dL (12.0-16.0); Lymphocytes Absolute Auto 2000 /uL (1100-4500); Mean Corpuscular HGB Conc 34.7 % (30-36); Mean Corpuscular Hemoglobin 30.3 PG (26-34); Mean Corpuscular Volume 87.4 fL (80-100); Platelet Count 247 X10^3/uL (150-400)
[2025-01-08 12:50] LABS: Alanine Aminotransferase 22 IU/L (<35); Albumin 3.6 g/dL (3.5-5.0); Albumin Globulin Ratio 1.0 (1.0-2.8); Alkaline Phosphatase 143 U/L (38-126); Blood Urea Nitrogen 6 mg/dL (7-17); Calcium 9.2 mg/dL (8.4-10.2); Carbon Dioxide 18 mmol/L (22-32); Chloride 108 mmol/L (98-107); Estimated Glomerular Filt Rate > 60 mL/min (>60); Globulin 3.5 g/dL (1.7-4.1); Glucose 80 mg/dL (70-99); HEMOLYSIS < 15 (0-50); Potassium 3.8 mmol/L (3.4-5.1); Sodium 134 mmol/L (137-145); Total Protein 7.1 g/dL (6.3-8.2); Uric Acid 4.2 mg/dL (2.5-6.2)
[2025-01-08 13:02] LABS: Protein (Total) Urine Random 9 mg/dL (0-12); Protein Creatinine Ratio Urine 0.03 GRAM/24H
== END 2025-01-08 12:31 | disposition home or self-care (01) ==
LOC: LABOR 12:26 → OB 13:10
PROVIDERS: Referring Provider Student in an Organized Health Care Education/Training Program; Visit Provider Student in an Organized Health Care Education/Training Program
DX: O13.3 Gestational [pregnancy-induced] hypertension without significant proteinuria, third trimester (principal); O99.213 Obesity complicating pregnancy, third trimester; E66.9 Obesity, unspecified; Z3A.36 36 weeks gestation of pregnancy; Z87.59 Personal history of other complications of pregnancy, childbirth and the puerperium; Z36.85 Encounter for antenatal screening for Streptococcus B
CPT/HCPCS: 36415; 59025; 80053; 84550; 85025; 87653; G0378; G0379

== ENCOUNTER → 2025-03-27 12:11 | Outpatient (CLI) | payer OTHER, SELFPAY ==
[2025-03-27 13:30] LABS: HCG Quantitative /Beta subunit < 2.39 mIU/mL
== END ==
PROVIDERS: Referring Provider Obstetrics & Gynecology; Visit Provider Obstetrics & Gynecology
DX: N91.2 Amenorrhea, unspecified (principal)
CPT/HCPCS: 36415; 84702

== ENCOUNTER → 2025-04-02 12:08 | Outpatient (CLI) | payer OTHER, SELFPAY ==
[2025-04-02 15:26] LABS: Urine N gonorrhoeae NOT DETECTED
[2025-04-02 15:42] LABS: Urine Chlamydia NOT DETECTED
== END ==
PROVIDERS: Visit Provider Obstetrics & Gynecology
DX: Z11.3 Encounter for screening for infections with a predominantly sexual mode of transmission (principal)
CPT/HCPCS: 36415; 86592; 86803; 87340; 87389; 87491; 87591

== ENCOUNTER → 2025-04-02 13:06 | Outpatient (CLI) | payer OTHER, SELFPAY ==
[2025-04-02 15:12] LABS: Hepatitis B Surface Antigen NEGATIVE s/c (NEGATIVE)
[2025-04-02 15:28] LABS: HIV 1 & 2 Ab/Ag 4th Gen Combo NEGATIVE (NEGATIVE); Hep C Virus Ab w/Reflex Quant NEGATIVE s/c (NEGATIVE)
== END ==
PROVIDERS: Referring Provider Obstetrics & Gynecology; Visit Provider Obstetrics & Gynecology
DX: Z11.3 Encounter for screening for infections with a predominantly sexual mode of transmission (principal)
CPT/HCPCS: 36415; 86592; 86803; 87340; 87389